=== PATIENT | female | born 1990 | race Caucasian/White ===

== ENCOUNTER 2021-01-24 05:51 | Inpatient (IN) | payer OTHER ==
[~2021-01-24] VITALS: Ht 154.9 cm; Wt 75.8 kg
[2021-01-24 06:34] LABS: HEMOGLOBIN 12.5 gm/dl (12.3-15.3); RED BLOOD COUNT 3.79 M/UL (4.00-5.10); WHITE BLOOD COUNT 11.2 K/UL (4.5-11.0)
[2021-01-24] MEDS ORDERED: SYNTHROID25 MCG PO (07:15)
[2021-01-24] MEDS ORDERED: PNV 29-1 TABLE1 EACH PO (07:16)
[2021-01-25 05:42] LABS: HEMOGLOBIN 12.9 gm/dl (12.3-15.3)
[2021-01-25] MEDS ORDERED: IBUPROFEN600 MG PO (08:46)
[2021-01-25] MEDS ORDERED: DOCUSATE SODIU100 MG PO (08:46)
== END 2021-01-25 13:28 | disposition home or self-care (01) | DRG 807 ==
LOC: OB 05:51
PROVIDERS: Obstetrics & Gynecology; ADMIT Obstetrics & Gynecology
PROC: 10E0XZZ Delivery of Products of Conception, External Approach (ICD-10-PCS; principal; 2021-01-24)
PROC: 0KQM0ZZ Repair Perineum Muscle, Open Approach (ICD-10-PCS; 2021-01-24)
PROC: 4A1HXCZ Monitoring of Products of Conception, Cardiac Rate, External Approach (ICD-10-PCS; 2021-01-24)
PROC: 10907ZC Drainage of Amniotic Fluid, Therapeutic from Products of Conception, Via Natural or Artificial Opening (ICD-10-PCS; 2021-01-24)
DX: O99.284 Endocrine, nutritional and metabolic diseases complicating childbirth (principal); Z37.0 Single live birth; E03.9 Hypothyroidism, unspecified; Z3A.39 39 weeks gestation of pregnancy; O24.420 Gestational diabetes mellitus in childbirth, diet controlled; O69.1XX0 Labor and delivery complicated by cord around neck, with compression, not applicable or unspecified; O70.1 Second degree perineal laceration during delivery
CPT/HCPCS: 36415; 81001; 82800; 82962; 85014; 85018; 85025; 90472; 90686; 90715; G0008; J2590; J7120